=== PATIENT | male | born 1970 | race Caucasian/White ===

== ENCOUNTER → 2017-09-28 | Day surgery (SDC) | payer OTHER ==
[~2017-09-28] MED LIST: HYDROmorphone 2 MG/ML VIAL IV PRN; IV RINGERS,LACTATED 1000ML 1,000 ML IV SCH; LIDOCAINE 1% PF 2 ML VIAL. ID PRN; LIDOCAINE 2% PF Vial for OR 5 ML VIAL. ONE; MORPHINE SULFATE 2 MG/ML VIAL. IV PRN; ONDANSETRON PF 4 MG/2 ML VIAL. IV PRN; PROCHLORPERAZINE 10 MG/2 ML VIAL. IV PRN; PROPOFOL 40 ML IV ONE; fentaNYL PF VIAL 100 MCG/2 ML VIAL IV PRN
[2017-09-28 08:25] VITALS: BP 106/54
--- NOTE | 2017-09-28 22:14 | CONS ---
DATE OF CONSULTATION: 09/28/2017 REASON: Oropharyngeal dysphagia, dysfunctional G-tube. HISTORY OF PRESENT ILLNESS: A 47-year-old male, whose past medical history significant for failure to thrive, weakness, seen for dysfunctional G-tube. He has been tolerating feedings over the past several years, but unable maintain his weight. With this, consultation is requested for placement. PAST MEDICAL HISTORY: Failure to thrive. ALLERGIES: None. MEDICATIONS: None. FAMILY AND SOCIAL HISTORY: Noncontributory. He is incarcerated. Does not drink or smoke. REVIEW OF SYSTEMS: Per records. PHYSICAL EXAMINATION: GENERAL: Reveals a thin male. VITAL SIGNS: Temperature 97.6, pulse 78, respirations 20. HEENT: Normocephalic and atraumatic head. Pupils and extraocular movements are not tested. Sclerae anicteric. NECK: Supple. LUNGS: Clear. CARDIOVASCULAR: Reveals S1, S2 without S3, S4 or appreciable murmur. ABDOMEN: Soft abdomen, normal bowel sounds without appreciable hepatosplenomegaly with an intact G-tube. EXTREMITIES: Reveals no cyanosis or clubbing. There is marked muscle wasting. IMPRESSION: Oropharyngeal dysphagia with dysfunctional G-tube. We will recommend EGD with PEG placement today. antibiotics will be administered. CHAPINCITO GILLETTE MD DR: ALEX/iveth JOB#: [id number] / [id number]
== END | disposition home or self-care (01) ==
LOC: SURG 07:17
PROVIDERS: ATTEND Internal Medicine Gastroenterology
DX: K94.23 Gastrostomy malfunction (principal); K29.50 Unspecified chronic gastritis without bleeding; R13.10 Dysphagia, unspecified; F17.200 Nicotine dependence, unspecified, uncomplicated; M06.9 Rheumatoid arthritis, unspecified
CPT/HCPCS: 43246; J2001; J2704

== ENCOUNTER → 2018-07-26 | Day surgery (SDC) | payer OTHER ==
[~2018-07-26] MED LIST changes: -HYDROmorphone 2 MG/ML VIAL IV PRN; -LIDOCAINE 1% PF 2 ML VIAL. ID PRN; -LIDOCAINE 2% PF Vial for OR 5 ML VIAL. ONE; -MORPHINE SULFATE 2 MG/ML VIAL. IV PRN; -ONDANSETRON PF 4 MG/2 ML VIAL. IV PRN; -PROCHLORPERAZINE 10 MG/2 ML VIAL. IV PRN; +PROPOFOL 20 ML IV ONE; -PROPOFOL 40 ML IV ONE; -fentaNYL PF VIAL 100 MCG/2 ML VIAL IV PRN
[2018-07-26 08:25] VITALS: BP 92/52
--- NOTE | 2018-07-26 09:47 | HP ---
ADMIT DATE: 07/26/2018 REASON: Improved oropharyngeal dysphagia. HISTORY OF PRESENT ILLNESS: A 48-year-old male with past medical history significant for failure to thrive, requiring G-tube placement, is now tolerating p.o., was unable to maintain his weight and is here for PEG removal. Denies any dysphagia, odynophagia. Denies any bleeding, diarrhea or constipation. Otherwise, no additional complaints. PAST MEDICAL HISTORY: Failure to thrive. ALLERGIES: None. MEDICATIONS: None. FAMILY AND SOCIAL HISTORY: Does not drink or smoke at the present time. SOCIAL HISTORY: He is incarcerated. PAST SURGICAL HISTORY: Noncontributory. REVIEW OF SYSTEMS: Per records. PHYSICAL EXAMINATION: GENERAL: Reveals a well-nourished, well-developed male, alert and cooperative, in no acute distress. VITAL SIGNS: Temperature 98.6, pulse 86, respirations 20. HEENT: Normocephalic and atraumatic head. Pupils and extraocular muscles are not tested. Sclerae anicteric. NECK: Supple. LUNGS: Clear. CARDIOVASCULAR: Reveals an S1, S2 without S3, S4 or appreciable murmur. ABDOMEN: Soft abdomen, normal bowel sounds without appreciable hepatosplenomegaly, with left upper quadrant PEG tube. EXTREMITIES: Reveal no cyanosis, clubbing or edema. IMPRESSION: Oropharyngeal dysphagia with improved functioning. G-tube will be removed today with upper endoscopy. Risks and benefits have been discussed with the patient and is willing to proceed at this time. CHAPINCITO GILLETTE MD DR: ALEX/iveth JOB#: [id number] / [id number] [facility]
== END ==
LOC: ENDOS 06:15 → EEVIPCON 07:30
PROVIDERS: ATTEND Internal Medicine Gastroenterology
DX: K94.23 Gastrostomy malfunction (principal); K29.50 Unspecified chronic gastritis without bleeding; M19.90 Unspecified osteoarthritis, unspecified site; Z87.891 Personal history of nicotine dependence; Z79.899 Other long term (current) drug therapy; Z88.0 Allergy status to penicillin; Z88.1 Allergy status to other antibiotic agents; Z88.8 Allergy status to other drugs, medicaments and biological substances; Z93.1 Gastrostomy status
CPT/HCPCS: 43247; J2704